=== PATIENT | male | born 1995 | race Caucasian/White ===

== ENCOUNTER 2023-07-09 02:20 | Emergency (ER) | payer OTHER, SELFPAY ==
[2023-07-09 02:28] VITALS: BP 127/79; PULSE 89; RESP 20; TEMP 36.5; O2SAT 97
--- NOTE | 2023-07-09 02:36 | ED_ITS ---
HPI - Headache General Date Seen: 07/09/23 Chief Complaint: Headache/Migraine Stated Complaint: Woke up with Headache& Vomiting Time Seen by Provider: 07/09/23 02:36 Source: patient Mode of arrival: ambulatory Limitations: no limitations History of Present Illness HPI Narrative: Patient is a 27-year-old male with no pertinent medical problems presenting to the emergency department for headache. Systolic 1st started around 23:00 tonight. He tried to go to bed around midnight symptoms worsen. He then proceeded to vomit. Since then symptoms have come and gone. He denies ever having headaches sick this before. States is the worst headache of his life. Describes it as a band sensation 1 was had with also the pressure on the lateral posterior aspect of his head. Denies lightheadedness or dizziness. No vision changes numbness, or weakness. Denies any recent trauma. Does state he wrestles with his kids on Mondays but does not remember hitting his head at that time. He is here with his . Related Data Home Medications Medication Instructions Recorded Confirmed No Known Home Medications 07/09/23 07/09/23 Allergies Allergy/AdvReac Type Severity Reaction Status Date / Time amoxicillin Allergy Verified 07/09/23 02:31 Review of Systems Status of ROS: Reports: 10 or more systems reviewed and unremarkable except as noted in History and below PFSH PFS Social History Smoking Status: Never smoker Non-prescribed substance use: denies use Exam Narrative: Exam Narrative: Const: Well-nourished, Well-developed, in mild distress Eyes: PERRL, no conjunctival injection, and symmetrical lids HENT: Atraumatic external nose and ears. Moist mucous membranes. MSK:Extremities w/o deformity, Normal Active ROM Skin: Warm, Dry. No rashes or lesions. Neuro: Normal Muscle tone, No focal neurological deficits. Psych: Awake, Alert, & Oriented x3. Appropriate mood and affect. Const: Vital Signs, click to edit/add: Vital Signs - 24 hr 07/09/23 02:28 Temperature 97.7 F Pulse Rate [Pulse Oximeter] 89 Respiratory Rate 20 Blood Pressure [Ri ght Forearm] 127/79 Pulse Oximetry 97 Oxygen Delivery Me thod Room Air Course Vital Signs Vital signs: Initial Vital Signs Temperature 97.7 F 07/09/23 02:28 Temperature Source Temporal Artery Scan 07/09/23 02:28 Pulse Rate 89 07/09/23 02:28 Pulse Rhythm Regular 07/09/23 02:28 Pulse Strength 3+ Normal 07/09/23 02:28 Respiratory Rate 20 07/09/23 02:28 Blood Pressure 127/79 07/09/23 02:28 Blood Pressure Mean 95 07/09/23 02:28 Pulse Oximetry 97 07/09/23 02:28 Oxygen Delivery Method Room Air 07/09/23 02:28 Vital Signs Temperature 97.7 F 07/09/23 02:28 Pulse Rate 89 07/09/23 02:28 Respiratory Rate 20 07/09/23 02:28 Blood Pressure 127/79 07/09/23 02:28 Pulse Oximetry 97 07/09/23 02:28 Oxygen Delivery Method Room Air 07/09/23 02:28 Temperature 97.7 F 07/09/23 02:28 Pulse Rate 89 07/09/23 02:28 Respiratory Rate 20 07/09/23 02:28 Blood Pressure 127/79 07/09/23 02:28 Pulse Oximetry 97 07/09/23 02:28 Oxygen Delivery Method Room Air 07/09/23 02:28 Medications Administered Medications: Discontinued Medications Generic Name Dose Route Start Last Admin Trade Name Freq PRN Reason Stop Dose Admin Diphenhydramine HCl 25 mg 07/09/23 02:36 07/09/23 02:58 Diphenhydramine 50 Mg/Ml Inj IVP 07/09/23 02:37 25 mg ONCE ONE Administration Lactated Ringer's 1,000 mls @ 1,000 mls/hr 07/09/23 02:36 07/09/23 02:58 Lactated Ringers 1000 Ml IV 07/09/23 03:35 1,000 mls/hr .Q1H ONE Administration Ketorolac Tromethamine 15 mg 07/09/23 02:36 07/09/23 02:58 Ketorolac 15 Mg/Ml Inj IVP 07/09/23 02:37 15 mg ONCE ONE Administration Metoclopramide HCl 10 mg 07/09/23 02:36 07/09/23 02:58 Metoclopramide Hcl 5 Mg/Ml Inj IVP 07/09/23 02:37 10 mg ONCE ONE Administration MDM - Headache MDM Narrative Medical decision making narrative: Patient is a 27-year-old male presenting for a headache. Has never had headache like this before and says is the worst headache of his life. Based on how describes it sounds more like a tension headache but they very concerned there is something worse going on. I spoke to the over the risks versus benefits of a CT scan in the with a CT head CT scan. This seems reasonable at this time considering he has never had symptoms like this before. We will treated with a migraine cocktail in the meantime. CT scan was done showing no acute abnormalities. His headache is much improved and he feels comfortable going home. Patient will be discharged home and they agree with this plan Imaging Data CT scan - head: Radiologist's impression: No acute intracranial abnormality. Please note that all CT scans at this facility use dose modulation, iterative reconstruction, and/or weight-based dosing when appropriate to reduce radiation dose to as low as reasonably achievable. Dictated by Layo Hansen MD @ 07/09/2023 3:57:06 AM Discharge Plan Discharge Clinical Impression: Headache Qualifiers: Headache type: unspecified Headache chronicity pattern: acute headache Intractability: not intractable Qualified Code(s): R51.9 - Headache, unspecified Patient Disposition: Home, Self-Care Condition: Stable Instructions: Acute Headache (DC) Additional Instructions: Take Tylenol and ibuprofen for pain. His boarding stay ahead of the pain at this time. If symptoms persist you can not follow-up with your primary care provider. If symptoms worsen you can return to the emergency department. Prescriptions: No Action No Known Home Medications Follow Up/Referrals: Provider,Not a Local [Primary Care Provider] - Stand Alone Forms: Access Information Management Info Instructions
--- NOTE | 2023-07-09 02:36 | CRLHL7_ITS ---
For Patients: As a result of the Century Cures Act, medical imaging exams and procedure reports are released immediately into your electronic medical record. You may view this report before your referring provider. If you have questions, please contact your health care provider. INDICATION: Headache. TECHNIQUE: CT head without contrast. COMPARISON: None. FINDINGS: CSF spaces: Within normal limits for age. Brain parenchyma: The amaro-white differentiation is maintained. No sign of mass, hemorrhage, or midline shift. Skull base and calvarium: The visualized paranasal sinuses and mastoid air cells demonstrate no acute or significant findings. The visualized orbits are grossly unremarkable. No skull fractures. IMPRESSION: No acute intracranial abnormality. Please note that all CT scans at this facility use dose modulation, iterative reconstruction, and/or weight-based dosing when appropriate to reduce radiation dose to as low as reasonably achievable. Dictated by Layo Hansen MD @ 07/09/2023 3:57:06 AM (Electronically Signed)
[2023-07-09] MEDS: diphenhydrAMINE 50 MG/ML inj 25 MG IVP (02:58)
[2023-07-09] MEDS: KETOROLAC 15 MG/ML inj IVP (02:58)
[2023-07-09] MEDS: LACTATED RINGERS 1000 ML 1,000 ML IV (02:58)
[2023-07-09] MEDS: METOCLOPRAMIDE HCL 5 MG/ML INJ 10 MG IVP (02:58)
== END 2023-07-09 04:15 | disposition home or self-care (01) ==
PROVIDERS: Emergency Provider Student in an Organized Health Care Education/Training Program
DX: R51.9 Headache, unspecified (principal)
CPT/HCPCS: 70450; 96361; 96374; 96375; 99283; 99284; J1200; J1885; J2765; J7120

== ENCOUNTER 2024-09-21 11:47 | Outpatient (CLI) | payer OTHER, SELFPAY | END 2024-09-21 11:48 | disposition home or self-care (01) | PROVIDERS: PCP Family Medicine; Visit Provider Family Medicine | DX: Z13.228 Encounter for screening for other metabolic disorders (principal); Z13.220 Encounter for screening for lipoid disorders; Z13.29 Encounter for screening for other suspected endocrine disorder; Z13.0 Encounter for screening for diseases of the blood and blood-forming organs and certain disorders involving the immune mechanism | CPT/HCPCS: 80053; 80061; 84443; 85025 ==

== ENCOUNTER 2024-10-12 08:58 | Day surgery (SDC) | payer OTHER, SELFPAY ==
[2024-10-12] VITALS (18 sets, daily range): BP systolic 97–129; BP diastolic 57–86; PULSE 60–86; RESP 14–20; TEMP 36.5–36.9; O2SAT 94–99; BMI 28.0
--- OUTSIDE RECORDS SUMMARY | 2024-10-12 09:02 | XMS_ITS | Continuity of Care Document ---
Author Name [facility], [place] Address [address] [place] [address] Organization Unknown Address [address] [place] [address] Medications Problems
--- OUTSIDE RECORDS SUMMARY | 2024-10-12 09:02 | XMS_ITS | Clinical Summary ---
Author Organization [facility] Address [address] [place] [id number] Care Team Providers Care Road Crew Member Name Role Phone Unassigned, Provider Primary Care Provider Unava ilable Source Comments You are receiving this document as you are listed as the primary care provider,follow-up provider, or the patient has been referred to you for consultation.This is in compliance with the Medicare andMedicaid EHR Incentive Program,which states Providers who transition their patient to another setting of careor provider of care or refers their patient to another provider of care shouldprovide summary care record for each transition of care or referral. Sp[facility] Wave Allergies Active Allergy Reactions Criticality Noted Date Comments Amoxicillin 05/24/2016 Medications No known medications Active Problems No known active problems Social History Tobacco Use Types Packs/Day Years Used Date Smoking Tobacco: Never Alcohol Use Standard Drinks/Week Comments Yes 0 (1 standard drink = 0.6 oz pur e alcohol) occ. Sex and Gender Information Value Date Recorded Sex Assigned at Not on file Gender Identity Not on file Sexual Orientation Not on file Last Filed Vital Signs Vital Sign Reading Time Taken Comments Blood Pressure 113/56 09/12/2016 9:46 AM ADMINISTRATIVE TECHNICIAN Pulse 62 09/12/2016 9:46 AM ADMINISTRATIVE TECHNICIAN Temperature 36 C (96.8 F) 09/12/2016 8:38 AM ADMINISTRATIVE TECHNICIAN Respiratory Rate 20 09/12/2016 9:46 AM ADMINISTRATIVE TECHNICIAN Oxygen Saturation 100% 09/12/2016 9:46 AM ADMINISTRATIVE TECHNICIAN Inhaled Oxygen Concentration - - Weight 77.1 kg (170 lb) 06/28/2016 1:14 PM CDT Height 177.8 cm (5' 10) 09/12/2016 8:38 AM ADMINISTRATIVE TECHNICIAN Body Mass Index 24.39 06/28/2016 1:14 PM CDT Plan of Treatment Health Maintenance Due Date Last Done Comments Hep C Screening (Preventive Services) 1993 HIV Screening (Preventive Services) 2009 Adult Preventive Visit 2011 DTaP/Tdap/Td (1 - Tdap) 2012 HepB (1) 2012 COVID-19 Vaccine (1 - 2023-2 5 season) 2024 Influenza (#1) 2024 Zoster/Shingles (1 of 2) 2043 HPV Vaccine Aged Out No longer eligi ble based on patient's age to complete this topic HepA Aged Out No longer eligi ble based on patient's age to complete this topic Hib Aged Out No longer eligi ble based on patient's age to complete this topic IPV (Polio) Aged Out No longer eligi ble based on patient's age to complete this topic MCV4 Aged Out No longer eligi ble based on patient's age to complete this topic Pneumococcal Aged Out No longer eligi ble based on patient's age to complete this topic Care Teams Road Crew Member Relationship Specialty Start Date End Date Unassigned, Provider [address] [place] [address] PCP - General 05/07/02
[2024-10-12] MEDS: SODIUM CHLORIDE 0.9 % (FLUSH) 10 ML SYRINGE IVF (09:19)
[2024-10-12] MEDS: LACTATED RINGERS 1000 ML 1,000 ML 100 ML IV (09:19)
[2024-10-12] MEDS: SCOPOLAMINE 1 MG/3 DAY PATCH 1 PATCH TRANSDERMA (09:30)
[2024-10-12] MEDS: CLINDAMYCIN 900 MG/50 ML-D5W 900 MG/50 ML PIGGYBACK 100 MG IVPB (10:14)
[2024-10-12] MEDS: BUPIVACAINE 0.25% 30 ML INJECTION (10:30)
--- NOTE | 2024-10-12 11:17 | W.PM.H&PU ---
History & Physical Update History & Physical Update H&P Reviewed and patient assessed: No changes noted
--- NOTE | 2024-10-12 11:17 | PM.GSPRC ---
Operative Note Date of procedure: 10/12/24 Pre-op diagnosis: Left inguinal hernia Post-op diagnosis: Same, direct Type of Procedure: Laparoscopic left inguinal hernia repair, TEP Indications: Patient is a 29-year-old male who presented to clinic with a symptomatic inguinal hernia. Risks and benefits of operative intervention were discussed at length with the patient. Risks included but was not limited to: Bleeding, infection, risk of damage to surrounding structures, possible need for additional procedures, possible need to convert to an open operation and postoperative complications such as pneumonia, pulmonary emboli or MD. All questions and concerns were addressed with the patient agreeing to proceed. Procedure Description: After discussing the risks and benefits of the procedure, the patient signed informed consent.? The operative site was marked and the patient was brought to the operating room and placed on the operating table in supine position.? Care was taken to pad the patient's pressure points.?? The patient was then intubated by anesthesia.?? The operative site was then prepped and draped in the usual sterile fashion.? A time-out was then performed. A curvilinear incision was made below the umbilicus. Dissection was carried down to subcutaneous tissue until the anterior rectus fascia was encountered. This was incised off the midline. The rectus muscles were then retracted exposing the posterior fascia. A space maker port with a dissecting balloon was then introduced. The preperitoneal space was inflated under direct vision. The balloon was then removed and the preperitoneal space insufflated. A 10 mm 0 degree scope was then advanced and the area was surveyed for bleeding. Dissection began on the left side. Gulshan's ligament and the pubic bone was exposed medially. Following this dissection was carried out laterally. A direct defect was noted. The sac was dissected free from the anterior abdominal wall and from the cord structures using a combination of sharp and blunt dissection. Once the sac was completely reduced, the cord structures were dissected circumfrentially and a piece of Parietex mesh for the appropriate side was placed into the abdomen. This was positioned around the cord structures. A Tacker was used to attach the mesh medially at Gulshan's ligament. A single tack was also used to apply the mesh laterally, taking care not to injure the underlying epigastrics. Once this was completed the sac was placed on top of the mesh and the preperitoneal space desufflated under direct vision. The ports were removed. The fascia from the infraumbilical port was closed with 0 Vicryl. The skin incisions were closed with absorbable subcuticular suture. Sterile dressings were then applied. The scrotum was examined to ensure that both testicles were down. Instrument sponge and needle counts were correct at the end of the case. Findings: Left direct inguinal hernia Anesthesia: GETA Surgeon: Rosa Stephens MD Estimated blood loss (mL): 5 Condition: stable Disposition: PACU
--- NOTE | 2024-10-12 11:22 | P.ANES_ITS ---
Anesthesia Charges Start Date/Time Anesthesia Start Date: 10/12/24 Anesthesia Start Time: 10:00 Stop Date/Time Anesthesia Stop Date: 10/12/24 Anesthesia Stop Time: 11:20 Coding CPT Codes CPT Codes: ANESTH SURGERY OF ABDOMEN - 45313 ([id number]) P1 - NORMAL HEALTHY PATIENT, QK - CIRCUIT MANAGER 2-4 CNCRNT ANEDeidra PROC, QX - CAN CARRIER SVFrank W/ MED DIRECTION
--- NOTE | 2024-10-12 11:22 | W.ANESCHARGE ---
Anesthesia Charges Start Date/Time Anesthesia Start Date: 10/12/24 Anesthesia Start Time: 10:00 Stop Date/Time Anesthesia Stop Date: 10/12/24 Anesthesia Stop Time: 11:20 Coding CPT Codes CPT Codes: ANESTH SURGERY OF ABDOMEN - 15678 ([id number]) P1 - NORMAL HEALTHY PATIENT, QK - STRAIGHTENING MACHINE OPERATOR 2-4 CNCRNT ANEDeidra PROC, QX - TOWER HOIST OPERATOR SVFrank W/ MED DIRECTION
[2024-10-12] MEDS: ONDANSETRON 2 MG/ML inj 4 MG IVP (12:05)
--- NOTE | 2024-10-12 12:05 | P.ANES_ITS ---
Anesthesia Charges Start Date/Time Anesthesia Start Date: 10/12/24 Anesthesia Start Time: 10:00 Stop Date/Time Anesthesia Stop Date: 10/12/24 Anesthesia Stop Time: 11:20 Coding CPT Codes CPT Codes: ANESTH SURGERY OF ABDOMEN - 89185 ([id number]) P1 - NORMAL HEALTHY PATIENT, QK - SCIENTIFIC AIDE 2-4 CNCRNT ANEDeidra PROC, QX - SUPPOSITORY MOLDING MACHINE OPERATOR SVFrank W/ MED DIRECTION
--- NOTE | 2024-10-12 12:05 | W.ANESCHARGE ---
Anesthesia Charges Start Date/Time Anesthesia Start Date: 10/12/24 Anesthesia Start Time: 10:00 Stop Date/Time Anesthesia Stop Date: 10/12/24 Anesthesia Stop Time: 11:20 Coding CPT Codes CPT Codes: ANESTH SURGERY OF ABDOMEN - 50131 ([id number]) P1 - NORMAL HEALTHY PATIENT, QK - DIPLOMA MEDICAL ASSISTANT 2-4 CNCRNT ANEDeidra PROC, QX - MANAGER CRITICAL CARE UNIT SVFrank W/ MED DIRECTION
[2024-10-12] MEDS: 0.9 % SODIUM CHLORIDE 500 ML 500 ML 100 ML IV (12:20)
[2024-10-12] MEDS: KETOROLAC 15 MG/ML inj IVP (12:30)
[2024-10-12] MEDS: LACTATED RINGERS 500 ML 500 ML IV (13:40)
== END 2024-10-12 14:04 | disposition home or self-care (01) ==
PROVIDERS: PCP Family Medicine; Visit Provider Surgery
PROC: (CPT 49650; principal; 2024-10-12 10:00)
DX: K40.90 Unilateral inguinal hernia, without obstruction or gangrene, not specified as recurrent (principal)
CPT/HCPCS: 49650; 00860; A9270; C1781; J0330; J0665; J0736; J1100; J1885; J2250; J2405; J2704; J2710; J3010; J7030; J7120